=== PATIENT | male | born 2000 ===

== ENCOUNTER 2020-05-10 14:18 | Outpatient (REF) | payer SELFPAY | END 2020-05-10 14:19 | disposition home or self-care (01) | LOC: HO.LAB 14:18 | PROVIDERS: Visit Provider Internal Medicine | DX: Z20.828 Contact with and (suspected) exposure to other viral communicable diseases (principal) | CPT/HCPCS: 87635 ==

== ENCOUNTER 2021-03-27 15:35 | Outpatient (REF) | payer MEDICAID, SELFPAY ==
--- NOTE | ~2021-03-27 | US_ITS ---
EXAMINATION: US SCROTUM CLINICAL INFORMATION: Right testicular pain. COMPARISON: None. TECHNIQUE: A sonogram of the scrotum was performed assessing moon-scale appearance and color Doppler flow. Spectral Doppler analysis of the arterial and venous flow were performed in the testes bilaterally. FINDINGS: RIGHT: Right testicle measures 4.4 x 2.3 x 3.3 cm, volume 17.5 mL. No focal testicular parenchymal lesions are visualized. Spectral Doppler analysis of the arterial and venous flow is normal in the right testis. Incidental finding of a small scrotal gómez measuring 0.3 x 0.1 x 0.4 cm is noted. Right epididymal head is normal in size. No right varicocele is seen. Right epididymal Doppler flow is normal. A small right hydrocele is noted. LEFT: Left testicle measures 4.3 x 2.2 x 3.1 cm, volume 15.5 mL. No focal testicular parenchymal lesions are visualized. Spectral Doppler analysis of the arterial and venous flow is normal in the left testis. Left epididymal head is normal in size. No left hydrocele or varicocele is seen. Left epididymal Doppler flow is normal. US/US scrotum IMPRESSION: Small right hydrocele with a small right scrotal gómez. Otherwise unremarkable bilateral testes and bilateral epididymis.
== END 2021-03-27 15:36 | disposition home or self-care (01) ==
LOC: HO.HMGCX 15:35
PROVIDERS: PCP Internal Medicine; Visit Provider Internal Medicine
DX: N50.811 Right testicular pain (principal)
CPT/HCPCS: 76870

== ENCOUNTER → 2021-07-31 11:00 | Outpatient (BNVA) | payer MEDICAID, SELFPAY | PROVIDERS: PCP Internal Medicine; Visit Provider Urology | DX: R10.31 Right lower quadrant pain (principal) | CPT/HCPCS: 99202 ==

== ENCOUNTER 2021-11-01 09:03 | Outpatient (RCR) | payer MEDICAID, SELFPAY ==
--- NOTE | 2021-11-01 14:07 | MHC.PT.OE ---
[facility] [place] [facility] [place] [facility] [place] [facility] [address] Layton Diaz [address] [facility] [phone] F: [phone] F: [phone] F: [phone] F: [phone] Physical Therapy Evaluation Evaluation Date: 11/01/21 Current Condition Diagnosis: right lower quadrant pain Onset Date: Date of Surgery: Chief Complaint/ Current Level of Function: The patient arrived reporting left inguinal and testicular pain that began about 3-4 years ago. He reports numbness and tingling in his left anterior testicle. 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 He denies any trouble with numbness or tingling in back, or legs. He denies any pain with urinary, bowel or sexual function. No sexual dysfunction noted. He denies a history of sexual trauma Prior Level of Function/Occupation: Pt lives with family. 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 He is independent with ADL's. Diagnostic Imaging: Patient Goals and Expectations: Past Medical History: unremarkable. Medications: Precautions/ Contraindications: Outcome Measure: Pain Pain Score: 8 Pain Scale Used: Numeric (0 - 10) Pain Location/ Description: intermittent left testicular pain Aggravating Factors: Alleviating Factors: he is not sure Objective Findings Posture: Forward Head Rounded Shoulders Skin & Soft Tissue/ Palpation: Gait/ Functional Mobility: Pt walks with normal reciprocal gait pattern Pain with squatting, lifting, lifting. AROM (PROM) Strength Cervical Spine Flexion: Extension: Lateral Flexion: Rotation: Cervical Comments: Flexion: Extension: Lateral Flexion: Rotation: Other: Shoulder Flexion: Extension: Abduction: ER: IR: Apley ER: Apley IR: Comments: Flexion: Extension: Abduction: Adduction: ER: IR: Other: Elbow Flexion: Extension: Pronation: Supination: Comments: Flexion: Extension: Pronation: Supination: Wrist Flexion: Wrist Extension: Other: Lumbar Spine Flexion: Extension: Lateral Flexion: Rotation: Comments: Transverse abdominus: Extensors: Other: Hip Flexion: Extension: Abduction: Adduction: ER: IR: Comment: Flexion: Extension: Abduction: Adduction: ER: IR: Other: Knee Flexion: Extension: Comments: Patella Mobility: Flexion: Extension: Other: Ankle Dorsiflexion: Plantarflexion: Inversion: Eversion: Comments: Dorsiflexion: Plantarflexion: Inversion: Eversion: Comments: Sharona Assessment: Sacroiliac Assessment: Muscle Length: Special Tests: Vitals: BP: HR: O2SAT: RR: Other: Balance: Neurological Screen: Biceps DTR: Brachioradialis DTR: Triceps DTR: Patella DTR: Achilles DTR: Other: Dermatomes: Sensation: Myotomes: Patient Education Primary Language Frisian Coordinator Of Genetic Services Required Yes Who was Educated Patient Readiness for Learning Accepting Current Knowledge Minimal, needs reinforcement Education Needs Disease Information Equipment Use Exercise Teaching Method Verbal Demonstration Handouts How did Patient Demonstrate Learning Patient demonstrates Barriers to Learning None Assessment Assessment: The patient arrived with pain signs consistent with inguinal disruption. The patient had pain at the rectus abdominis insertion point at the pubic bone. The patient's spine was cleared as a source of pain and this did not elicit pain. The patient tolerated tx well. I gave him recommendations on sitting, lifting, sleeping posture. I instructed briefly on body mechanics for lifting, bending, and work. I issued lunge stretch with instructions on pain free stretching. When he returns we will do core stabilization. Rehabilitation Potential: Good Plan of Care Frequency and Duration 1x/week x 6 weeks. Short Term Goals 2 weeks 1.Pt to able to demonstrate proper sitting posture with the use of a lumbar roll to decrease aggravating factors. 2.Pt to be able to demonstrate proper posture for common leisure activities such as phone/tablet use. 3.For the patient to demonstrate proper upright sitting posture with use of the lumbar roll to improve compliance and carryover. Alf Goals 1.The patient to demonstrate proper lifting mechanics for household chore activities to show improved functional mobility. 2.The patient to report no pain to show resolution of inguinal disruption 3. Pt to be able to demonstrate self management of abdominal pain by demonstration of HEP. Treatment Plan Therapeutic Exercise Dynamic Therapeutic Activities Neuromuscular Re-ed Manual Therapies Home Exercise Program Patient Education Pelvic Floor Therapy Reviewed/ Agreed with Student Documentation: Therapist: Electronically signed by: Please sign and return to therapist. Thank you for your referral.
== END 2022-01-25 12:23 | disposition home or self-care (01) ==
LOC: HO.PT 09:03
PROVIDERS: PCP Internal Medicine; Visit Provider Urology
DX: R10.31 Right lower quadrant pain (principal)
CPT/HCPCS: 97110; 97112; 97162

== ENCOUNTER → 2021-11-02 14:01 | Outpatient (BNVA) | payer MEDICAID, SELFPAY | PROVIDERS: PCP Internal Medicine; Visit Provider Urology | DX: R10.31 Right lower quadrant pain (principal) | CPT/HCPCS: 99212 ==

== ENCOUNTER 2023-06-03 18:11 | Outpatient (REF) | payer MEDICAID, SELFPAY ==
[2023-06-03 19:33] LABS: Influenza A PCR NEGATIVE (Negative); Influenza B PCR NEGATIVE (Negative); Resp Syncy Virus RNA Qual PCR NEGATIVE (Negative); SARS COV2 PCR INHOUSE NEGATIVE (Negative)
== END 2023-06-03 18:12 | disposition home or self-care (01) ==
LOC: HO.HHCLNP 18:11
PROVIDERS: Visit Provider Emergency Medicine
DX: Z11.52 Encounter for screening for COVID-19 (principal); J06.9 Acute upper respiratory infection, unspecified
CPT/HCPCS: 0241U; 87070

== ENCOUNTER 2024-01-20 11:19 | Outpatient (AMB) | payer OTHER, SELFPAY ==
--- NOTE | 2024-01-20 11:25 | MHC.OFFVIS ---
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 2 doses doxycycline hyclate 100 mg PO BID fluticasone propionate 50 mcg/actuation (Flonase Allergy Relief) 1 spray intranasal DAILY loratadine 10 mg PO DAILY naproxen (Naprosyn) 500 mg PO Q12H PRN [id number] 3.5-10,000-1 mg/mL-unit/mL-% 4 drps otic (ear) left Q8H HPI Comments Details: 24-year-old male patient presenting with left axillary hidradenitis. He has had several previous infections on the left side in various locations. The most recent infection started a proximally 1 month ago. He was placed on doxycycline and now reports an improvement in the pain but continues to feel a firm nodule below the skin. He denies any fever, chills, nausea or vomiting. There is no current discharge noted from the wound. He denies any previous surgical procedures in the axilla. [facility] Medical History Testicular pain Surgical History No pertinent past surgical history Review of Systems Const All systems reviewed & are unremarkable except as noted in HPI and below Physical Exam Vital Signs: Last Vital Signs Pulse 81 01/20/24 11:29 BP 138/72 01/20/24 11:29 BMI result Body Mass Index 33.6 Const General: cooperative and no acute distress Nutritional Appearance: well nourished Orientation/consciousness: patient oriented x3 Limitations: no limitations HEENT Head: Yes normocephalic and Yes atraumatic Ears: hearing grossly normal bilaterally Chest Other: Left axilla with a small area measuring approximately 1.5 cm with minimal erythema in the lower lateral axilla. Findings are consistent with a resolving hidradenitis infection. Several scars are noted superior to this as well. No abscess is appreciated at this time. Chest/axillae images: 1. Site of hidradenitis left axilla Resp Effort & Inspection: normal respiratory effort, no audible wheezes, no cough and no respiratory distress Cardio Jugular venous distension: no JVD GI Inspection: Yes normal to inspection Skin Other: Warm, dry, no rash Neuro General: patient oriented x3 Extrem General: Yes no clubbing, cyanosis or edema Assessment & Plan Assessment & Plan (1) Hidradenitis suppurativa: Code(s): L73.2 - Hidradenitis suppurativa Category: Medical Plan 24-year-old male patient presenting with a recent onset of hidradenitis of the left axilla. There is no active infection at this time although there is still some redness in the skin which may benefit from prolonged in the antibiotic. I also discussed local wound care with a surgical scrub to lower bacterial counts. He will return in 1 month for re-evaluation. He is welcome to call sooner for any new concerns. Medications: New doxycycline hyclate 100 mg PO BID 20 tabs 0RF L73.2 - Hidradenitis suppurativa chlorhexidine gluconate 4% (Hibiclens) Lather in shower for 1 minute before rinsing, every other day 1 appl topical .Q.o.d. 236 mL 0RF 2 doses Coding Level of Care Code New Pt Level 4 (29044) Diagnoses Hidradenitis suppurativa L73.2
[2024-01-20 11:29] VITALS: BP 138/72; PULSE 81; BMI 33.6
== END 2024-01-20 11:39 | disposition home or self-care (01) ==
PROVIDERS: PCP Internal Medicine; Visit Provider Surgery
DX: L73.2 Hidradenitis suppurativa (principal)
CPT/HCPCS: 99203

== ENCOUNTER → 2024-01-20 11:19 | Outpatient (BNVA) | payer MEDICAID, SELFPAY | PROVIDERS: PCP Internal Medicine; Visit Provider Surgery | DX: L73.2 Hidradenitis suppurativa (principal) | CPT/HCPCS: 99202 ==

== ENCOUNTER 2024-01-29 09:49 | Outpatient (REF) | payer MEDICAID, SELFPAY ==
[2024-01-29 14:46] LABS: MANUAL DIFF FLAG NO
[2024-01-29 14:55] LABS: Basophils Percent Auto 0.5 % (0-2); Eosinophils Absolute Auto 0.1 X10*3/uL (0.0-0.4); Eosinophils Percent Auto 2.2 % (0-4); Hematocrit 46.9 % (42.0-52.0); Imm Gran Abs Auto 0.03 X10*3/uL (0.00-0.03); Imm Gran Pct Auto 0.5 % (0.0-0.4); Lymphocytes Absolute Auto 2.7 X10*3/uL (1.2-4.9); Lymphocytes Percent Auto 42.3 % (20-40); Mean Corpuscular HGB Conc 34.1 g/dl (31.0-36.0); Mean Corpuscular Hemoglobin 30.1 pg (27.0-33.0); Mean Corpuscular Volume 88.2 fL (80.0-98.0); Mean Platelet Volume 11.1 fL (9.4-12.4); Monocytes Absolute Auto 0.4 X10*3/uL (0.1-1.2); Monocytes Percent Auto 6.1 % (2-11); Neutrophils Absolute Auto 3.1 x10*3/uL (2.0-8.3); Neutrophils Percent Auto 48.4 % (45-73); Platelet Count 278 X10*3/uL (160-400); Red Blood Count 5.32 X10*6/uL (4.60-5.80); Red Cell Distribution Width 12.6 % (11.0-16.0); White Blood Count 6.4 X10*3/uL (4.8-10.8)
[2024-01-29 15:04] LABS: Estimated Average Glucose 103 mg/dL; Hemoglobin A1c % 5.2 % (<6.0)
[2024-01-29 15:15] LABS: Alanine Aminotransferase 56 U/L (0-40); Albumin Level 4.6 g/dL (3.5-5.0); Alkaline Phosphatase 68 U/L (39-117); Anion Gap 12 (12-20); Aspartate Amino Transferase 29 U/L (5-37); Bilirubin Total 0.6 mg/dL (0.0-1.0); Blood Urea Nitrogen 17 mg/dL (9-16); Calcium 9.4 mg/dL (8.4-10.2); Carbon Dioxide 24 mmol/L (22-29); Chloride 107 mmol/L (96-108); Cholesterol 193 mg/dL (<200); Estimated Glomerular Filt Rate > 60; Glucose Random 94 mg/dL (60-115); HDL Cholesterol 45 mg/dL (>40); LDL Cholesterol Calculated 111 mg/dL (<100); Sodium 139 mmol/L (135-145); Triglycerides 188 mg/dL (<150)
[2024-01-29 15:33] LABS: TSH reflex Free T4 1.16 uIU/mL (0.32-4.0)
== END 2024-01-29 09:50 | disposition home or self-care (01) ==
LOC: HO.CHCLDS 09:49
PROVIDERS: Visit Provider Internal Medicine
DX: I10 Essential (primary) hypertension (principal)
CPT/HCPCS: 36415; 80053; 80061; 83036; 84443; 85025